=== PATIENT | female | born 1955 | race Two or more races ===

== ENCOUNTER 2022-07-27 13:11 | Inpatient (IN) | payer MEDICAID ==
[~2022-07-27] VITALS: Ht 149.9 cm; Wt 54.9 kg
[2022-07-27] MEDS ORDERED: CHOL100043 PO (15:47)
[2022-07-27] MEDS ORDERED: CALC1TAB30 PO (15:47)
[2022-07-27] MEDS ORDERED: OMEG-167 PO (15:47)
[2022-07-27] MEDS ORDERED: MULT-1200 PO (15:47)
[2022-07-27] MEDS ORDERED: ASCO-340 PO (15:47)
[2022-07-27] MEDS ORDERED: CEPH500C2 PO (15:47)
[2022-07-27 16:09] VITALS: BP 131/80
--- NOTE | 2022-07-27 16:17 | NUR ---
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 DIRECT ADMIT FROM [facility], REPORT GIVEN BY TIFFANY ALVARADO FROM ER. PATIENT A/Ox4, ABLE TO MAKE NEEDS KNOWN, TAGALOG SPEAKING, UNDERSTANDS AND SPEAKS SOME [place]. PATIENT ABLE TO AMBULATE FROM GURNEY TO BED. ORIENTED TO STAFF AND UNIT, V/S TAKEN AND STABLE. PATIENT IV ACCESS LAC #22G, INTACT AND PATENT. NO C/O OF PAIN OR DISCOMFORT AT THIS TIME. FULL BODY ASSESSMENT COMPLETED: CARDIAC HEART SOUNDS WNL, RESPIRATORY LUNG SOUNDS WNL, GI/ CONTINENT, SKIN INTACT. PATIENT AT BEDSIDE. MD NOTIFIED OF ARRIVAL. SAFETY MEASURES IN PLACE: BED LOCKED AND IN LOWEST POSITION, HOB ELEVATED, CALL LIGHT WITHIN REACH, SIDE RAILS UPx2. WILL CONTINUE TO MONITOR.
[2022-07-27] MEDS ORDERED: MORPHINE SULFATE INJ 2 MG/ML DISP.SYRIN IV PRN (16:30)
[2022-07-27] MEDS ORDERED: ACETAMINOPHEN 325 MG TABLET PO PRN (16:30)
[2022-07-27] MEDS ORDERED: IV NS 0.9% 1,000 ML IV PRN (16:30)
[2022-07-27] MEDS ORDERED: PANTOPRAZOLE 40 MG VIAL IV SCH (16:30)
[2022-07-27] MEDS ORDERED: ONDANSETRON HCL/PF 4 MG/2 ML VIAL IVP PRN (16:30)
[2022-07-27] MEDS: ENOXAPARIN SODIUM 40 MG/0.4 ML DISP.SYRIN SQ SCH (16:45)
[2022-07-27 17:03] LABS: BASOPHILS % (AUTO) 0.2 % (0.0-2.0); EOSINOPHILS % (AUTO) 0.2 % (0.0-6.0); HEMATOCRIT 37 % (33-45); HEMOGLOBIN 12.2 g/dL (11.5-14.8); LYMPHOCYTES # (AUTO) 1.2 K/uL (0.8-4.8); LYMPHOCYTES % (AUTO) 18.6 % (20.0-44.0); MEAN CORPUSCULAR HGB CONC 33 g/dl (31.0-36.0); MEAN CORPUSCULAR VOLUME 90 fL (82-100); MONOCYTES # (AUTO) 0.6 K/uL (0.1-1.30); MONOCYTES % (AUTO) 8.7 % (2.0-12.0); NEUTROPHILS # (AUTO) 4.7 K/uL (1.8-8.9); NEUTROPHILS % (AUTO) 72.3 % (43.0-81.0); PLATELET COUNT (AUTO) 157 K/uL (150-450); RED BLOOD CELL COUNT(AUTO) 4.12 MIL/uL (4.0-5.2); WHITE BLOOD COUNT (AUTO) 6.5 K/uL (4.3-11.0)
[2022-07-27 17:13] LABS: CREATININE 0.9 mg/dL (0.6-1.3)
--- NOTE | 2022-07-27 18:41 | NUR ---
MS RN CLOSING NOTES PATIENT AWAKE IN BED, A/Ox4, TAGALOG AND [place] SPEAKING. STABLE ON ROOM AIR, NO S/S OF RESPIRATORY DISTRESS OR DISCOMFORT. IV ACCESS LAC #22G RUNNING NS @75 ML/HR. INTACT AND PATENT. PATIENT IS AMBULATORY HAS BRP. SKIN INTACT. NO S/S OF PAIN OR DISCOMFORT. SAFETY MEASURES MAINTAINED: BED LOCKED AND IN LOWEST POSITION, HOB ELEVATED, CALL LIGHT WITHIN REACH, SIDE RAILS UPx2. WILL ENDORSE TO NEXT SHIFT ANY EVIN.
[2022-07-27 20:00] VITALS: BP 137/81
--- NOTE | 2022-07-27 20:05 | NUR ---
RN OPENING NOTE RECEIVED PT AWAKE IN BED. PT IS A/O 4, TAGALOG SPEAKING, ABLE TO MAKE NEEDS KNOWN. PT IS IN RA TOLERATING WELL, BREATHING EVEN AND UNLABORED @ THIS TIME. PT IV IS ON LEFT AC @75 MLS/HR RUNNING NS @85 MLS/HR, PATENT, INTACT AND FLUSHES WELL W/ NO S & SX OF INFILTRATION. SAFETY MEASURE IS IN PLACE. BED IS IN LOWEST & LOCKED POSITION. SIDE RAILS X 4. BEDSIDE TABLE AND CALL LIGHT IS EASY REACH. BED ALARM IS ON. WILL CONTINUE TO MONITOR PT ACCORDINGLY. Addendum: 07/27/22 at 2005 by KAMRAN SHAH RN TIME ERROR. OPENING NOTES @ 1900.
[2022-07-27 21:03] LABS: ALBUMIN 3.5 g/dL (3.4-5.0); BILIRUBIN,DIRECT 0.1 mg/dL (0.0-0.2); BILIRUBIN,TOTAL 0.5 mg/dL (0.2-1.0); TOTAL PROTEIN, SERUM 6.6 g/dL (6.4-8.2)
[2022-07-27] MEDS ORDERED: CEFTRIAXONE 1 G in IV D5W 50 ML IV SCH (22:00)
[2022-07-27] MEDS ORDERED: CEFTRIAXONE 1GM BAG (ER ONLY) 50 ML IV ONE (22:28)
[2022-07-28 05:56] LABS: BASOPHILS % (AUTO) 0.4 % (0.0-2.0); EOSINOPHILS % (AUTO) 1.2 % (0.0-6.0); HEMATOCRIT 36 % (33-45); HEMOGLOBIN 11.8 g/dL (11.5-14.8); LYMPHOCYTES # (AUTO) 1.2 K/uL (0.8-4.8); LYMPHOCYTES % (AUTO) 37.4 % (20.0-44.0); MEAN CORPUSCULAR HGB CONC 33 g/dl (31.0-36.0); MEAN CORPUSCULAR VOLUME 91 fL (82-100); MONOCYTES # (AUTO) 0.3 K/uL (0.1-1.30); MONOCYTES % (AUTO) 9.1 % (2.0-12.0); NEUTROPHILS # (AUTO) 1.7 K/uL (1.8-8.9); NEUTROPHILS % (AUTO) 51.9 % (43.0-81.0); PLATELET COUNT (AUTO) 138 K/uL (150-450); RED BLOOD CELL COUNT(AUTO) 3.91 MIL/uL (4.0-5.2); WHITE BLOOD COUNT (AUTO) 3.3 K/uL (4.3-11.0)
[2022-07-28 06:15] LABS: CALCIUM, SERUM 8.9 mg/dL (8.5-10.1); CREATININE 0.8 mg/dL (0.6-1.3); MAGNESIUM 2.6 mg/dL (1.8-2.4); PHOSPHORUS 3.5 mg/dL (2.5-4.9); POTASSIUM 3.6 mmol/L (3.5-5.1)
--- NOTE | 2022-07-28 06:52 | NUR ---
RN CLOSING NOTE PT AWAKE & RESTING COMFORTABLY IN BED. PT IS A/O 4, RESPONSIVE & FOLLOWS VERBAL COMMAND. PT IS IN RA W/ NO S &SX OF RESPIRATORY DISTRESS NOTED @ THIS TIME. PT IV IS ON LEFT AC RUNNING NS @75 MLS/HR, PATENT, INTACT AND FLUSHES WELL W/ NO S & SX OF INFILTRATION. ADMINISTERED MEDICATION ACCORDINGLY PER MD'S ORDER. SAFETY MEASURE IS IN PLACE. BED IS IN LOWEST & LOCKED POSITION. SIDE RAILS X 4. BEDSIDE TABLE AND CALL LIGHT IS EASY REACH. BED ALARM IS ON. WILL CONTINUE TO MONITOR PT ACCORDINGLY. WILL ENDORSE PT TO THE NEXT SHIFT FOR EVIN.
--- NOTE | 2022-07-28 07:32 | NUR ---
RN OPENING NOTE RECEIVED PT AWAKE IN BED. PT IS A/O 4, TAGALOG SPEAKING BUT UNDERSTAND AND SPEAK LITTLE [place], ABLE TO MAKE NEEDS KNOWN. PT IS IN RA,TOLERATING WELL, BREATHING EVEN AND UNLABORED. NO COMPLAIN OF PAIN AT THIS TIME. PT IV IS ON LAC G#22 @75 MLS/HR, PATENT, INTACT AND FLUSHES WELL W/ NO S & SX OF INFILTRATION. SAFETY MEASURE IS IN PLACE. BED IS IN LOWEST & LOCKED POSITION. SIDE RAILS X 4. BEDSIDE TABLE AND CALL LIGHT IS EASY REACH. BED ALARM IS ON. WILL CONTINUE TO MONITOR PT ACCORDINGLY.
[2022-07-28 08:04] VITALS: BP 122/81
[2022-07-28] MEDS ORDERED: PANTOPRAZOLE 40 MG/PACK PACK PO SCH (09:00)
--- NOTE | 2022-07-28 09:00 | NUR ---
RN NOTES PATIENT MEDICATION ON HOLD. NPO due to HIDA procedure
--- NOTE | 2022-07-28 09:36 | NUR ---
RT EKG not done. Pt absent from dept at this time
[2022-07-28 15:59] VITALS: BP 122/80
[2022-07-28] MEDS: ENOXAPARIN SODIUM 40 MG/0.4 ML DISP.SYRIN SQ SCH (16:30)
--- NOTE | 2022-07-28 18:27 | NUR ---
RN DISCHARGED NOTES PT DISCHARGED HOME IN STABLE CONDITION. A/O X4. ABLE TO MAKE NEEDS KNOWN. ON ROOM AIR, TOLERATING WELL, NO SOB NOTED. NO SKIN ISSUES NOTED. ALL BELONGINGS ACCOUNTED FOR AND PT SIGNED BELONGINGS LIST. IV ACCESS ON LAC G#22 REMOVED WITH NO ACTIVE BLEEDING NOTED, DRY DRESSING APPLIED AT SITE. HEALTH TEACHINGS/DISCHARGE INSTRUCTIONS GIVEN TO PT, VERBALIZED UNDERSTANDING. NAME ARMBAND REMOVED. PT LEFT UNIT @ [id number] ACCOMPANIED BY [place] NURSE MARTINEZ FAJARDO, PATIENT'S ARCHIE WILL TAKE PATIENT HOME. DOCTOR AND CHARGE NURSE AWARE OF D/C.
== END 2022-07-28 18:23 | disposition home or self-care (01) ==
LOC: MED 14:59
PROVIDERS: ADMIT Nurse Practitioner Acute Care; ATTEND Nurse Practitioner Acute Care
DX: K80.00 Calculus of gallbladder with acute cholecystitis without obstruction (principal); Q44.4 Choledochal cyst; E78.5 Hyperlipidemia, unspecified; M81.0 Age-related osteoporosis without current pathological fracture; N39.0 Urinary tract infection, site not specified; Z20.822 Contact with and (suspected) exposure to COVID-19; B96.89 Other specified bacterial agents as the cause of diseases classified elsewhere; K82.8 Other specified diseases of gallbladder
CPT/HCPCS: 36415; 71045-TC; 76700-TC; 78226; 80048-TC; 80061-TC; 80076-TC; 83735-TC; 84100-TC; 85025-TC; 87081-TC; A4223; A9537; C9113; G0378; J0696; J1650; J7030; J7060